=== PATIENT | female | born 1945 | race Caucasian/White ===

== ENCOUNTER → 2019-03-20 | Outpatient (CLI) | payer MEDICARE ==
[2016-12-17 08:50] VITALS: BP 134/71
[~2019-03-20] MED LIST: HYDR12.58 PO; LISI-334 PO; LISI10TA2 PO; PANT40TA77 PO; ZOLPIDEM 5 MG TABLET. PO ONE
--- NOTE | 2019-03-21 12:01 | SLEEP ---
DATE OF STUDY: 03/20/2019 OBJECTIVE: The patient is a 73-year-old female with possible sleep apnea. INTERPRETATION: Sleep architecture is characterized by sleep efficiency of 77% across the 7.1 hours of recording time. Stage volumes are appropriate for age. Respiratory monitoring shows a total of 67 events for an apnea-hypopnea index of 12.3 events per hour of sleep. Minimum oxygen saturation is 82%. CPAP is not initiated on this study. Periodic limb movements of sleep occurred at the rate of 1.7 events per hour of sleep. No significant cardiac arrhythmias are observed. IMPRESSION: Abnormal polysomnogram showing obstructive sleep apnea and hypopnea. RECOMMENDATIONS: The patient should pursue weight loss and avoid sedatives and alcohol. She can be returned to the lab for a CPAP titration study. Thank you for letting us help with the patient's care. CHANDLER BROWN MD DR: OLYA/юлия JOB#: [id number] / [id number] Bae Anna MD REISZ, GEORGE MD
== END | disposition home or self-care (01) ==
LOC: SLPLAB 18:55
PROVIDERS: ATTEND Internal Medicine Pulmonary Disease
DX: G47.33 Obstructive sleep apnea (adult) (pediatric) (principal)
CPT/HCPCS: 95810

== ENCOUNTER → 2019-03-29 | Outpatient (CLI) | payer MEDICARE ==
[2016-12-17 08:50] VITALS: BP 134/71
[~2019-03-29] MED LIST changes: -ZOLPIDEM 5 MG TABLET. PO ONE
--- NOTE | 2019-03-29 14:49 | CARD ---
MR#: [id number] Date of Study: 03/29/2019 Ordering Physician: CHRISTINE ZAVALA, Referring Physician: CHRISTINE ZAVALA, Donna: Nano German APPROVED REPORT EXAM: Two-dimensional and M-mode echocardiogram with Doppler and color Doppler. Other Information Quality : AverageHR: 76bpm INDICATION Chest Pain 2D DIMENSIONS RVDd3.6 (2.9-3.5cm)Left Atrium(2D)3.4 (1.6-4.0cm) IVSd1.2 (0.7-1.1cm)Aortic Root(2D)2.3 (2.0-3.7cm) LVDd4.4 (3.9-5.9cm)LVOT Diameter1.9 (1.8-2.4cm) PWd1.0 (0.7-1.1cm)LVDs2.1 (2.5-4.0cm) FS (%) 52.4 %SV74.0 ml LVEF(%)83.7 (>50%) Aortic Valve AoV Peak Oswaldo.157.3cm/sAoV VTI33.2cm AO Peak GR.9.9mmHgLVOT Peak Oswaldo.113.4cm/s AO Mean GR.6mmHgAVA (VMAX)2.03cm2 Mitral Valve MV E Sitztngo77.7cm/sMV E Peak Gr.5mmHg MV DECEL [id number] A Qvyegtbo96.0cm/s MV E Mean Gr.2mmHgE/A Ratio0.7 Pulmonary Valve PV Peak Ztdfiudz55.8cm/s Tricuspid Valve TR P. Swiqivss430za/sRAP NUWNGDAP1xoPa TR Peak Gr.42ceCoDWLV63xpAg Pulmonary Vein S1 Uirkjaqq58.1cm/sD2 Lzbzokqu01.6cm/s LEFT VENTRICLE The left ventricle is normal size. There is mild concentric left ventricular hypertrophy. The left ve ntricular systolic function is normal and the ejection fraction is within normal range. The Ejection Fraction is 55-60%. There is normal LV segmental wall motion. Transmitral Doppler flow pattern is Gra de I-abnormal relaxation pattern. RIGHT VENTRICLE The right ventricle is mildly dilated. The right ventricle is moderately hypertrophied. The right apolinar tricular systolic function is normal. ATRIA The left atrium is mildly dilated. The right atrium is mildly dilated. The interatrial septum is inta ct with no evidence for an atrial septal defect or patent foramen ovale as noted on 2-D or Doppler im aging. AORTIC VALVE The aortic valve is calcified but opens well. Doppler and Color Flow revealed trace to mild aortic re gurgitation. There is no significant aortic valvular stenosis. MITRAL VALVE The mitral valve is thickened but opens well. Mitral annular calcification is mild. There is no karol l valve stenosis. Doppler and Color-flow revealed trace mitral regurgitation. TRICUSPID VALVE The tricuspid valve is normal in structure and function. Doppler and Color Flow revealed mild tricusp id regurgitation with an estimated PAP of 20mmHg. There is no tricuspid valve stenosis. PULMONIC VALVE The pulmonic valve is not well visualized. Doppler and Color Flow revealed no pulmonic valvular regur gitation. There is no pulmonic valvular stenosis. GREAT VESSELS The aortic root is normal in size. The ascending aorta is normal in size. The IVC is normal in size a nd collapses >50% with inspiration. PERICARDIAL EFFUSION There is no pleural effusion. There is no evidence of significant pericardial effusion. Critical Notification Critical Value: No <Conclusion> The left ventricular systolic function is normal and the ejection fraction is within normal range. Th e Ejection Fraction is 55-60%. There is normal LV segmental wall motion. The right ventricle is mildly dilated. The right ventricle is moderately hypertrophied. Doppler and Color Flow revealed mild tricuspid regurgitation with an estimated PAP of 20mmHg. Signed by : Faizan Issa, Electronically Approved : 03/29/2019 14:49:00
--- NOTE | 2019-03-29 14:51 | RAD ---
MR#: [id number] Date of Study: 03/29/2019 Ordering Physician: CHRISTINE ZAVALA Referring Physician: KELLEY PERALTA Tech: APPROVED REPORT Test Type: Exercise Stress Nurse/Tech: Mattie RAO Test Indications: CP, Dyspnea Cardiac History: HTN, See EMR Medications: See EMR Medical History: Asthma, COPD, See EMR Resting ECG: SR Resting Heart Rate: 79 bpm Resting Blood Pressure: 154/63mmHg Pretest Chest Pain: No chest pain Nurse/Tech Notes Lungs CTA, Heart tones regular. Consent: The procedure was explained to the patient in lay terms. Informed consent was witnessed. Alejandro eout was entered into [employer]. History and Stress Test performed by DHIRAJ Prieto Stress Symptoms Dyspnea. Pt only able to tolerate walking on the treadmill 40 secs. Pt became dizzy and SOB. Pt tori es any chest pain. Pt explained feeling like she was having a anxiety/panic attack. Pt able to jennifer julissa back to baseline by the end of recovery. Pt's O2 sat was >96% on RA, during recovery. POST EXERCISE Reason for Termination: Patient request Target HR: Yes Max HR: 110 bpm 89% of Maximum Predicted HR: 123 bpm Exercise duration: 00:40 min:sec, 1 Stage Exercise capacity: 4.0METs Max Blood Pressure: 168/83mmHg Blood Pressure response to exercise: Normal blood pressure response during stress. Heart Rate response to exercise: WNL Chest Pain: No. See Stress Symptoms Arrhythmia: No. ST Change: No. Conclusion 1. Normal baseline EKG 2. Non-diagnosic treadmill study due to poor exercise tolerance. Recommendations Consider chemical stress test for further evaluation. Signed by : Faizan Issa, Electronically Approved : 03/29/2019 14:51:36
== END | disposition home or self-care (01) ==
LOC: NM 12:13
PROVIDERS: ATTEND Internal Medicine Pulmonary Disease
DX: I08.3 Combined rheumatic disorders of mitral, aortic and tricuspid valves (principal); I10 Essential (primary) hypertension; J45.909 Unspecified asthma, uncomplicated; J44.9 Chronic obstructive pulmonary disease, unspecified
CPT/HCPCS: 93017; 93306